=== PATIENT | male | born 1965 | race Caucasian/White ===

== ENCOUNTER 2016-05-01 14:06 | Emergency (ER) | payer SELFPAY ==
[~2016-05-01] VITALS: Ht 185.4 cm; Wt 84.0 kg
[2016-05-01 14:08] VITALS: BP 150/78; PULSE 82; RESP 20; TEMP 97.4; O2SAT 98
[2016-05-01] MEDS ORDERED: IBUP800T23 PO (15:20)
[2016-05-01] MEDS ORDERED: AUGM875T PO (15:20)
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
[2016-05-01] MEDS ORDERED: LIDOCAINE 1%/EPINEPHrine 1:100,000 SOLN 20 ML VIAL INFIL ONE (15:30)
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
== END 2016-05-01 16:06 | disposition home or self-care (01) ==
LOC: NEPB 14:06
DX: S01.511A Laceration without foreign body of lip, initial encounter (principal); W50.0XXA Accidental hit or strike by another person, initial encounter; Y93.9 Activity, unspecified; Y92.9 Unspecified place or not applicable; Y99.9 Unspecified external cause status
CPT/HCPCS: 12051

== ENCOUNTER 2016-06-02 14:35 | Emergency (ER) | payer SELFPAY ==
[~2016-06-02] VITALS: Ht 185.4 cm; Wt 84.0 kg
[~2016-06-02 14:35] MED LIST: AUGM875T PO; IBUP800T23 PO
[2016-06-02 14:37] VITALS: BP 160/70; PULSE 68; RESP 20; TEMP 98.1; O2SAT 98
[2016-06-02] MEDS ORDERED: HYDR-3133 PO (17:27)
--- NOTE | 2016-06-02 17:28 | PD ---
HPI Chief Complaint: Dizziness Time Seen by Provider: 16:51 Travel History International Travel<30 days: No Contact w/Intl Traveler<30days: No Traveled to known affect area: No History of Present Illness HPI So 50-year-old man who presents to the emergency department complaining is been having headaches and dizziness and memory problems. He states "I've had 6 stroke site of seizures and "also states that he needs a disability form filled out for [employer]. States his eyes he walks around he can't number babcock doing what he is doing. He drinks alcohol but denies daily alcohol use. Does endorse that he gets tired easily. History Past Medical History Narrative Medical CVA Seizures Tobacco use Tetanus Vaccination: Unknown Influenza Vaccination: Yes Social History Alcohol Use: Yes Tobacco Use: Yes Allergies-Medications (Allergen,Severity, Reaction): Coded Allergies: No Known Allergies (Unverified , 06/02/16) Reported Meds & Prescriptions Reported Meds & Active Scripts Active Augmentin (Amoxicillin-Clavulanate) 875-125 mg Tab 875 Mg PO BID 7 Days not for use in CrCl <30 ml/min. Ibuprofen 800 Mg Tab 800 Mg PO Q6HR PRN Review of Systems Except as stated in HPI: all other systems reviewed are Neg Physical Exam Narrative GENERAL: 50-year-old man, joint well-appearing, slurred speech, little bit tremulous. SKIN: Focused skin assessment warm/dry. NECK: Trachea midline. No JVD. CARDIOVASCULAR: Regular rate and rhythm. No murmur appreciated. RESPIRATORY: No accessory muscle use. Clear to auscultation. Breath sounds equal bilaterally. GASTROINTESTINAL: Abdomen soft, non-tender, nondistended. Hepatic and splenic margins not palpable. MUSCULOSKELETAL: No obvious deformities. No clubbing. No cyanosis. No edema. NEUROLOGICAL: Awake and alert. No obvious cranial nerve deficits. No facial asymmetry. Motor grossly within normal limits. Strength full and equal upper and lower extremities. Some occasional tremor. Slurred speech. Data Data Last Documented VS Vital Signs Date Time Temp Pulse Resp B/P Pulse Ox O2 Delivery O2 Flow Rate FiO2 06/02/16 17:14 18 99 06/02/16 14:37 98.1 68 160/70 Room Air MDM Medical Decision Making Medical Screen Exam Complete: Yes Emergency Medical Condition: Yes Differential Diagnosis Weakness, intoxication, previous CVAs, cerebellar degeneration, vitamin deficiency, other Narrative Course Medical decision making Is a 50-year-old man presents emergent from pretty generalized complaints. States he has strokes and seizures in the past and feels weak and confused at times. He drinks alcohol most days. Denies daily alcohol use. He states he carries a cane because of not. We'll send that he's drunk because of how much she staggers. Nisha vitamin deficiency or cerebellar degeneration. He endorses multiple previous strokes could be causing her symptoms. It may actually be intoxicated. He seems to mostly be here because she called [facility] and they said he needs a physician performed. I told him we don't do that in the emergency department. He likes of dizziness. We can give him some Antivert. Diagnosis Primary Impression: Dizziness Additional Instructions: Follow-up with her primary physician for further evaluation of your dizziness and disability. Use Antivert as needed for dizziness. Return to the emergency department for any new or worsening symptoms. Med/Other Pt SpecificInfo: Prescription(s) given Scripts Hydroxyzine HCl 25 Mg Tab25 Mg PO TID PRN (DIZZINESS) #12 TAB Ref 0 Prov:Goran Vigil MD 06/02/16 Disposition: 01 DISCHARGE HOME Condition: Stable Goran Vigil MD Jun 02, 2016 17:27
[2016-06-02] MEDS ORDERED: hydrOXYzine HCL 25 MG TAB PO ONE (17:30)
== END 2016-06-02 17:49 | disposition home or self-care (01) ==
LOC: NEPC 14:35
DX: R42 Dizziness and giddiness (principal); Z72.0 Tobacco use
CPT/HCPCS: 99283

== ENCOUNTER 2016-06-09 12:12 | Emergency (ER) | payer SELFPAY ==
[~2016-06-09] VITALS: Ht 185.4 cm; Wt 84.0 kg
[~2016-06-09 12:12] MED LIST changes: +HYDR-3133 PO
[2016-06-09 12:14] VITALS: BP 178/74; PULSE 75; RESP 17; TEMP 98.1; O2SAT 98
--- NOTE | 2016-06-09 12:28 | PD ---
Physical Exam Time Seen by Provider: 12:26 Narrative 50yo M c/o dizziness secondary to hx of stroke since 2014. Wound on bottom of R foot from this morning from stepping on a panel on the back porch. Denies fever, vomiting. Patient stable. Patient seen in triage. Awaiting bed placement. Data Data Last Documented VS Vital Signs Date Time Temp Pulse Resp B/P Pulse Ox O2 Delivery O2 Flow Rate FiO2 06/09/16 12:14 98.1 75 17 178/74 98 Orders Electrocardiogram (06/09/16 ) [facility] Supervised Visit with LAUREN: Mary Castellanos Jun 09, 2016 12:28
--- NOTE | 2016-06-09 15:02 | PD ---
HPI Chief Complaint: Dizziness Time Seen by Provider: 14:03 Travel History International Travel<30 days: No Contact w/Intl Traveler<30days: No Traveled to known affect area: No History of Present Illness HPI Is a 50-year-old man who presents to the emergency department with a cut on the bottom of his right foot. He states he slipped and fell and cut it on metal. Patient has a history of multiple strokes and has a lot of unsteadiness and dizziness. I see him in the emergency department before for the similar symptoms. This happened this morning. He otherwise has been feeling well. History Past Medical History Narrative Medical CVA Seizures Tobacco use Tetanus Vaccination: < 5 Years Social History Alcohol Use: Yes (last a week ago. ) Tobacco Use: Yes Allergies-Medications (Allergen,Severity, Reaction): Coded Allergies: No Known Allergies (Unverified , 06/02/16) Reported Meds & Prescriptions Reported Meds & Active Scripts Active Review of Systems Except as stated in HPI: all other systems reviewed are Neg Physical Exam Narrative GENERAL: 50-year-old man, wobbly and unsteady, per his intoxicated, similar to when I saw him previously. SKIN: Warm and dry. CARDIOVASCULAR: Warm and well perfused. RESPIRATORY: Normal rate and effort. MUSCULOSKELETAL: Patient has a skin tear on the bottom of his foot was some avulsion of a small piece of soft tissue on the ball of the foot. It scraped off some of the thick epidermis, but is overall still very superficial. NEUROLOGICAL: Awake and alert. No gross deficits. Data Data Last Documented VS Vital Signs Date Time Temp Pulse Resp B/P Pulse Ox O2 Delivery O2 Flow Rate FiO2 06/09/16 13:00 Room Air 06/09/16 12:14 98.1 75 17 178/74 98 Orders Electrocardiogram (06/09/16 ) Foot, Limited (2vws) (06/09/16 ) MDM Medical Decision Making Medical Screen Exam Complete: Yes Emergency Medical Condition: Yes Interpretation(s) My review of right foot x-ray: No foreign body Differential Diagnosis Avulsion, retained foreign body, other Narrative Course Medical decision making 50-year-old man, unsteadiness from previous strokes. At baseline. Has a fall with a cut above his foot. We will clean up the cut. There is no real opportunity for primary repair. Recommend local wound care. Diagnosis Primary Impression: Avulsion of right foot excluding toes Additional Instructions: Keep foot clean and dry. Apply anabiotic ointment to wound twice daily. Follow-up with her primary doctor in the next one to 2 weeks or not completely well. Return to the emergency department for any new or worsening symptoms. Med/Other Pt SpecificInfo: No Change to Meds Disposition: 01 DISCHARGE HOME Condition: Stable Goran Vigil MD Jun 09, 2016 15:02
--- NOTE | 2016-06-09 15:12 | RADRPT ---
EXAM DATE/TIME: 06/09/2016 14:43 [facility] COMPARISON: No previous studies available for comparison. INDICATIONS : Right foot pain after cutting bottom of foot today. Evaluate for foreign body. MEDICAL HISTORY : Smoker. SURGICAL HISTORY : None. ENCOUNTER: Initial ACUITY: 1 day PAIN SCORE: 9/10 LOCATION: Right bottom of foot. FINDINGS: Two view examination of the right foot demonstrates no dislocation or fracture. There is mild soft t issue swelling of the plantar aspect of the foot with no radiopaque foreign body. The calcaneus is in tact. Bony mineralization is normal. CONCLUSION: Mild soft tissue swelling with no radiopaque foreign body. Jan Warren MD on June 09, 2016 at 15:10 Board Certified Radiologist. This report was verified electronically.
== END 2016-06-09 15:55 | disposition home or self-care (01) ==
LOC: NEPD 12:12
DX: S91.301A Unspecified open wound, right foot, initial encounter (principal); R42 Dizziness and giddiness; R26.81 Unsteadiness on feet; R56.9 Unspecified convulsions; W01.0XXA Fall on same level from slipping, tripping and stumbling without subsequent striking against object, initial encounter; W26.8XXA Contact with other sharp object(s), not elsewhere classified, initial encounter; Y92.009 Unspecified place in unspecified non-institutional (private) residence as the place of occurrence of the external cause; Z72.0 Tobacco use
CPT/HCPCS: 73620; 99283

== ENCOUNTER 2016-08-12 08:44 | Emergency (ER) | payer SELFPAY ==
[~2016-08-12] VITALS: Ht 177.8 cm; Wt 90.0 kg
[2016-08-12 08:50] VITALS: BP 136/76; PULSE 64; RESP 18; TEMP 97.8; O2SAT 96
[2016-08-12] MEDS ORDERED: SODIUM CHLOR 0.9% 1000 ML INJ 1,000 ML IV ONE (09:00)
[2016-08-12] MEDS ORDERED: SODIUM CHLORIDE 0.9% FLUSH 10 ML FLUSH IVF PRN (09:00)
--- NOTE | 2016-08-12 09:21 | RADRPT ---
EXAM DATE/TIME: 08/12/2016 09:10 [facility] COMPARISON: No previous studies available for comparison. INDICATIONS : Cephalgia. RADIATION DOSE: 38.74 CTDIvol (mGy) MEDICAL HISTORY : None SURGICAL HISTORY : None. ENCOUNTER: Initial ACUITY: 1 day PAIN SCALE: 5/10 LOCATION: Bilateral cranial TECHNIQUE: Multiple contiguous axial images were obtained of the head. Using automated exposure control and adj ustment of the mA and/or kV according to patient size, radiation dose was kept as low as reasonably a chievable to obtain optimal diagnostic quality images. DICOM format image data is available electro nically for review and comparison. FINDINGS: There is an area of diminished cortical and subcortical density in the medial left occipital region p osterior to the occipital horn of lateral ventricle extending to the posterior medial cortical surfac e. Similar areas of diminished density are present in the cerebellar hemispheres bilaterally. These a re presumably strokes of undetermined age. An old lacunar infarct is present in the right caudate hea d. There is no evidence of intracranial hemorrhage or mass. Ventricles are symmetric and normal. Extr acranial structures are benign and intact. CONCLUSION: Areas of diminished density consistent with strokes of incompletely determined chronicity. Recommend further evaluation with MRI. Robert Brothers MD on August 12, 2016 at 9:16 Board Certified Radiologist. This report was verified electronically.
[2016-08-12 09:40] LABS: AUTOMATED NEUTROPHIL # 2.7 TH/MM3 (1.8-7.7); BASOPHIL # 0.1 TH/MM3 (0-0.2); BASOPHIL % 1.3 % (0.0-2.0); EOSINOPHIL # 0.2 TH/MM3 (0-0.4); EOSINOPHIL % 4.8 % (0.0-4.0); HEMATOCRIT 38.7 % (39.0-51.0); HEMO FLAGS DIFF FINAL; LYMPHOCYTE # 1.2 TH/MM3 (1.0-4.8); MEAN CELL VOLUME 87.3 FL (80.0-100.0); MEAN CORPUSCULAR HEMOGLOBIN 30.6 PG (27.0-34.0); MEAN CORPUSCULAR HGB CONC 35.1 % (32.0-36.0); MONO % 11.3 % (0.0-8.0); NEUT % 57.6 % (16.0-70.0); PLATELET COUNT 196 TH/MM3 (150-450); RED BLOOD COUNT 4.43 MIL/MM3 (4.50-5.90); RED CELL DISTRIBUTION WIDTH 13.2 % (11.6-17.2); WHITE BLOOD COUNT 4.6 TH/MM3 (4.0-11.0)
[2016-08-12 09:58] LABS: ANION GAP 6 MEQ/L (5-15); BICARBONATE 27.9 MEQ/L (21.0-32.0); BLOOD UREA NITROGEN 15 MG/DL (7-18); CHLORIDE 109 MEQ/L (98-107); GLOMERULAR FILTRATION RATE 93 ML/MIN (>89); POTASSIUM 3.8 MEQ/L (3.5-5.1); SODIUM (NA) 143 MEQ/L (136-145)
--- NOTE | 2016-08-12 10:19 | PD ---
HPI Chief Complaint: Headache Time Seen by Provider: 08:53 Travel History International Travel<30 days: No Contact w/Intl Traveler<30days: No Traveled to known affect area: No History of Present Illness HPI 50-year-old male presents with diffuse headache that he's had intermittently over the past couple years since his stroke. He denies any trauma or other concurrent complaints. He denies taking anything for the headache. He states he had alcohol last night but none today. He states he cannot afford his medications and is not taking them but does not know what he should be taking. He feels worse when he was round. He denies other modifying factors. Patient is a poor historian. [facility] Past Medical History Narrative Medical By records Cerebrovascular Accident: Yes (x5) Diabetes: No Diminished Hearing: No Past Surgical History Narrative Surgical Patient denies but poor historian Social History Alcohol Use: Yes (ONE BEER LAST NIGHT) Tobacco Use: Yes (1 PPD) Substance Use: No Allergies-Medications (Allergen,Severity, Reaction): Coded Allergies: No Known Allergies (Unverified , 06/02/16) Reported Meds & Prescriptions Reported Meds & Active Scripts Active Review of Systems Except as stated in HPI: all other systems reviewed are Neg Physical Exam Exam Limitations: Poor Historian Narrative GENERAL: Well-nourished, well-developed patient. SKIN: Warm and dry. HEAD: Normocephalic and atraumatic. EYES: No injection or drainage. ENT: No nasal drainage noted. NECK: Supple, trachea midline. CARDIOVASCULAR: Regular rate and rhythm RESPIRATORY: No increased effort. No accessory muscle use. GASTROINTESTINAL: Abdomen soft, non-tender, nondistended. NEUROLOGICAL: Awake and alert. Moves all extremities equally. Normal speech. Steady gait Data Data Last Documented VS Vital Signs Date Time Temp Pulse Resp B/P Pulse Ox O2 Delivery O2 Flow Rate FiO2 08/12/16 08:50 97.8 64 18 136/[address] Brain W/O Iv Contrast(Rout) (08/12/16 ) Complete Blood Count With Diff (08/12/16 09:00) Basic Metabolic Panel (Bmp) (08/12/16 09:00) Ecg Monitoring (08/12/16 09:00) Iv Access Insert/Monitor (08/12/16 09:00) Oximetry (08/12/16 09:00) Sodium Chloride 0.9% Flush (Ns Flush) (08/12/16 09:00) Sodium Chlor 0.9% 1000 Ml Inj (Ns 1000 M (08/12/16 09:00) Alcohol (Ethanol) (08/12/16 09:00) Labs Laboratory Tests Test 08/12/16 09:20 White Blood Count 4.6 TH/MM3 Red Blood Count 4.43 MIL/MM3 Hemoglobin 13.6 GM/DL Hematocrit 38.7 % Mean Corpuscular Volume 87.3 FL Mean Corpuscular Hemoglobin 30.6 PG Mean Corpuscular Hemoglobin 35.1 % Concent Red Cell Distribution Width 13.2 % Platelet Count 196 TH/MM3 Mean Platelet Volume 8.1 FL Neutrophils (%) (Auto) 57.6 % Lymphocytes (%) (Auto) 25.0 % Monocytes (%) (Auto) 11.3 % Eosinophils (%) (Auto) 4.8 % Basophils (%) (Auto) 1.3 % Neutrophils # (Auto) 2.7 TH/MM3 Lymphocytes # (Auto) 1.2 TH/MM3 Monocytes # (Auto) 0.5 TH/MM3 Eosinophils # (Auto) 0.2 TH/MM3 Basophils # (Auto) 0.1 TH/MM3 CBC Comment DIFF FINAL Differential Comment Sodium Level 143 MEQ/L Potassium Level 3.8 MEQ/L Chloride Level 109 MEQ/L Carbon Dioxide Level 27.9 MEQ/L Anion Gap 6 MEQ/L Blood Urea Nitrogen 15 MG/DL Creatinine 0.86 MG/DL Estimat Glomerular Filtration 93 ML/MIN Rate Random Glucose 85 MG/DL Calcium Level 8.5 MG/DL Ethyl Alcohol Level LESS THAN 3 MG/DL MDM Medical Decision Making Medical Screen Exam Complete: Yes Emergency Medical Condition: Yes Medical Record Reviewed: Yes (past history confirmed) Interpretation(s) CBC & BMP Diagram 08/12/16 09:20 Last [address] 08/12/16 0000 Signed Impressions: Service Date/Time: Friday, August 12, 2016 09:10 - CONCLUSION: Areas of diminished density consistent with strokes of incompletely determined chronicity. Recommend further evaluation with MRI. Robert Brothers MD Differential Diagnosis Tension, migraine, cluster, bleed Narrative Course Will check blood work, CT and reevaluate CT shows stroke of unknown duration. Went back in to talk with patient about results and he had eloped against advice at 10:15 Diagnosis Primary Impression: Cephalgia Qualified Code: R51 - Acute nonintractable headache, unspecified headache type Patient Instructions: General Instructions Disposition: 07 AGAINST MEDICAL ADVICE Condition: Stable Yamileth Valentino MD Aug 12, 2016 10:19
== END 2016-08-12 10:19 | disposition left against medical advice (07) ==
LOC: NEPC 08:44
DX: R51 Headache (principal); Z86.73 Personal history of transient ischemic attack (TIA), and cerebral infarction without residual deficits; F17.210 Nicotine dependence, cigarettes, uncomplicated
CPT/HCPCS: 70450; 80048; 80307; 85025; J7030

== ENCOUNTER 2016-08-23 05:44 | Observation (INO) | payer SELFPAY ==
[~2016-08-23] VITALS: Ht 185.4 cm; Wt 86.0 kg
[2016-08-23 05:48] VITALS: BP 147/72; PULSE 74; RESP 15; TEMP 98.1; O2SAT 98
[2016-08-23] MEDS ORDERED: SODIUM CHLORIDE 0.9% FLUSH 10 ML FLUSH IVF PRN (06:15)
[2016-08-23 06:40] VITALS: BP_SYST 138; BP_SYST 141; BP_DIAS 70; BP_DIAS 73; RESP 16; O2SAT 100
--- NOTE | 2016-08-23 06:48 | RADRPT ---
EXAM DATE/TIME: 08/23/2016 06:10 [facility] COMPARISON: No previous studies available for comparison. INDICATIONS : Right upper quadrant abdominal pain. MEDICAL HISTORY : None. SURGICAL HISTORY : None. ENCOUNTER: Initial ACUITY: 1 day PAIN SCORE: 10/10 LOCATION: Right upper quadrant FINDINGS: A single view of the chest demonstrates the lungs to be symmetrically aerated without evidence of mas s, infiltrate or effusion. The cardiomediastinal contours are unremarkable. Multiple old healed left fracture deformities. Mild dextroscoliosis of the thoracolumbar spine. CONCLUSION: No acute cardiopulmonary process. Marquis Solomon MD on August 23, 2016 at 6:46 Board Certified Radiologist. This report was verified electronically.
[2016-08-23 06:52] LABS: AUTOMATED NEUTROPHIL # 3.2 TH/MM3 (1.8-7.7); BASOPHIL # 0.1 TH/MM3 (0-0.2); BASOPHIL % 1.3 % (0.0-2.0); EOSINOPHIL # 0.2 TH/MM3 (0-0.4); EOSINOPHIL % 3.7 % (0.0-4.0); HEMATOCRIT 41.1 % (39.0-51.0); HEMO FLAGS DIFF FINAL; LYMPH % 28.6 % (9.0-44.0); LYMPHOCYTE # 1.6 TH/MM3 (1.0-4.8); MEAN CELL VOLUME 88.8 FL (80.0-100.0); MEAN CORPUSCULAR HEMOGLOBIN 30.9 PG (27.0-34.0); MEAN CORPUSCULAR HGB CONC 34.8 % (32.0-36.0); NEUT % 57.4 % (16.0-70.0); PLATELET COUNT 245 TH/MM3 (150-450); RED BLOOD COUNT 4.62 MIL/MM3 (4.50-5.90); RED CELL DISTRIBUTION WIDTH 13.7 % (11.6-17.2); WHITE BLOOD COUNT 5.6 TH/MM3 (4.0-11.0)
[2016-08-23 07:07] LABS: ANION GAP 7 MEQ/L (5-15); BICARBONATE 26.7 MEQ/L (21.0-32.0); BLOOD UREA NITROGEN 14 MG/DL (7-18); CHLORIDE 105 MEQ/L (98-107); GLOMERULAR FILTRATION RATE 103 ML/MIN (>89); POTASSIUM 3.6 MEQ/L (3.5-5.1); SODIUM (NA) 139 MEQ/L (136-145)
--- NOTE | 2016-08-23 07:09 | PD ---
HPI Chief Complaint: Chest Pain Time Seen by Provider: 06:11 Travel History International Travel<30 days: No Contact w/Intl Traveler<30days: No Traveled to known affect area: No History of Present Illness HPI Patient is a 51-year-old male comes in complaining of chest pain. He says the pain is on the right side of his chest and he is had for the past 3 or 4 days. He was found outside of [facility] in his underwear and when police told him to move , he said he had chest pain. He denies shortness of breath or nausea or vomiting. He says that exertion makes the pain worse. He has not had any cough or fever. PFSH Past Medical History Cerebrovascular Accident: Yes (x5) Diabetes: No Diminished Hearing: No Seizures: Yes Social History Alcohol Use: Yes (OCC) Tobacco Use: Yes (1 PPD) Substance Use: No Allergies-Medications (Allergen,Severity, Reaction): Coded Allergies: No Known Allergies (Unverified , 08/23/16) Reported Meds & Prescriptions Reported Meds & Active Scripts Active No Active Prescriptions or Reported Medications Review of Systems Except as stated in HPI: all other systems reviewed are Neg General / Constitutional: No: Fever, Chills HENT: No: Headaches, Lightheadedness Cardiovascular: Positive: Chest Pain or Discomfort Respiratory: No: Shortness of Breath Gastrointestinal: No: Nausea, Vomiting Musculoskeletal: No: Myalgias Skin: No Rash, No Change in Pigmentation Neurologic: No: Weakness, Dizziness Physical Exam Narrative GENERAL: Awake and alert, in no acute distress. SKIN: Focused skin assessment warm/dry. HEAD: Atraumatic. Normocephalic. EYES: Pupils equal and round. No scleral icterus. ENT: Mucous membranes pink and moist. NECK: Trachea midline. No JVD. CARDIOVASCULAR: Regular rate and rhythm. No murmur appreciated. RESPIRATORY: No accessory muscle use. Clear to auscultation. Breath sounds equal bilaterally. GASTROINTESTINAL: Abdomen soft, non-tender, nondistended. MUSCULOSKELETAL: No obvious deformities. No clubbing. No cyanosis. No edema. NEUROLOGICAL: Awake and alert. No obvious cranial nerve deficits. Motor grossly within normal limits. Normal speech. PSYCHIATRIC: Appropriate mood and affect; insight and judgment normal. Data Data Last Documented VS Vital Signs Date Time Temp Pulse Resp B/P Pulse Ox O2 Delivery O2 Flow Rate FiO2 08/23/16 07:40 70 17 155/72 98 Room Air Orders Basic Metabolic Panel (Bmp) (08/23/16 06:13) Complete Blood Count With Diff (08/23/16 06:13) Prothrombin Time / Inr (Pt) (08/23/16 06:13) Act Partial Throm Time (Ptt) (08/23/16 06:13) Troponin I (08/23/16 06:13) Chest, Single Ap (08/23/16 06:13) Ecg Monitoring (08/23/16 06:13) Bilateral Bp Monitoring (08/23/16 06:13) Iv Access Insert/Monitor (08/23/16 06:13) Oximetry (08/23/16 06:13) Sodium Chloride 0.9% Flush (Ns Flush) (08/23/16 06:15) Alcohol (Ethanol) (08/23/16 06:13) Aspirin Chew (Aspirin Chew) (08/23/16 09:00) Admit Order (Ed Use Only) (08/23/16 ) Labs Laboratory Tests Test 08/23/16 06:30 White Blood Count 5.6 TH/MM3 Red Blood Count 4.62 MIL/MM3 Hemoglobin 14.3 GM/DL Hematocrit 41.1 % Mean Corpuscular Volume 88.8 FL Mean Corpuscular Hemoglobin 30.9 PG Mean Corpuscular Hemoglobin 34.8 % Concent Red Cell Distribution Width 13.7 % Platelet Count 245 TH/MM3 Mean Platelet Volume 7.9 FL Neutrophils (%) (Auto) 57.4 % Lymphocytes (%) (Auto) 28.6 % Monocytes (%) (Auto) 9.0 % Eosinophils (%) (Auto) 3.7 % Basophils (%) (Auto) 1.3 % Neutrophils # (Auto) 3.2 TH/MM3 Lymphocytes # (Auto) 1.6 TH/MM3 Monocytes # (Auto) 0.5 TH/MM3 Eosinophils # (Auto) 0.2 TH/MM3 Basophils # (Auto) 0.1 TH/MM3 CBC Comment DIFF FINAL Differential Comment Prothrombin Time 10.9 SEC Prothromb Time International 1.0 RATIO Ratio Activated Partial 27.7 SEC Thromboplast Time Sodium Level 139 MEQ/L Potassium Level 3.6 MEQ/L Chloride Level 105 MEQ/L Carbon Dioxide Level 26.7 MEQ/L Anion Gap 7 MEQ/L Blood Urea Nitrogen 14 MG/DL Creatinine 0.79 MG/DL Estimat Glomerular Filtration 103 ML/MIN Rate Random Glucose 89 MG/DL Calcium Level 9.0 MG/DL Troponin I LESS THAN 0.02 NG/ML Ethyl Alcohol Level LESS THAN 3 MG/DL MDM Medical Decision Making Medical Screen Exam Complete: Yes Emergency Medical Condition: Yes Medical Record Reviewed: Yes Interpretation(s) ECG shows sinus bradycardia at 54, no ST elevation or depression. Differential Diagnosis ACS versus NSTEMI versus STEMI versus intoxication versus malingering Narrative Course Patient is a 51-year-old male who comes in complaining of chest pain. Exam shows no acute abnormalities. IV established, labs sent. Patient connected to supervisor multifocal lens. Patient given aspirin. Chest x-ray performed shows no acute abnormalities. Labs show no acute abnormalities. Patient placed in chest pain center for further management. Diagnosis Primary Impression: Chest pain, atypical Admitting Information Admitting Physician Requests: Observation Scripts No Active Prescriptions or Reported Meds Condition: Stable Nubia Adkins MD Aug 23, 2016 07:09
[2016-08-23 07:12] LABS: APTT (PATIENT) 27.7 SEC (24.3-30.1); PROTHROMBIN TIME - PATIENT 10.9 SEC (9.8-11.6)
[2016-08-23 07:40] VITALS: BP 155/72; PULSE 70; RESP 17; O2SAT 98
[2016-08-23] MEDS ORDERED: ASPIRIN 81 MG CHEW TAB CHEW SCH (09:00)
[2016-08-23] MEDS ORDERED: ACETAMINOPHEN/HYDROcodone 325 MG/7.5 MG TAB PO PRN (09:15)
[2016-08-23] MEDS ORDERED: ACETAMINOPHEN 500 MG CPLT PO PRN (09:15)
[2016-08-23] MEDS ORDERED: ONDANSETRON HCL 4 MG/2 ML VIAL IV PRN (09:15)
[2016-08-23] MEDS ORDERED: SODIUM CHLORIDE 0.9% FLUSH 5 ML FLUSH IVF PRN (09:15)
[2016-08-23 09:34] VITALS: BP 145/65; PULSE 67; RESP 16; TEMP 96; O2SAT 98
--- NOTE | 2016-08-23 09:35 | EKG ---
Date Performed: 08/23/2016 Time Performed: 06:08:21 PTAGE: 51 years EKG: SINUS BRADYCARDIA NONSPECIFIC T-WAVE ABNORMALITY BORDERLINE ECG NO PREVIOUS TRACING DOCTOR: Jim Pride Interpretating Date/Time 08/23/2016 09:34:23
--- NOTE | 2016-08-23 09:55 | HHI.HP ---
HPI Primary Care Physician No Primary Care Physician Chief Complaint Chest pain History of Present Illness This is a 51-year-old male that presents to ED via E VAC with a complaint of a right-sided chest discomfort is present for about a month. Is worsened with certain movements and with coughing. He states he has had a cough as far as he can remember and interpreted to a smoker's cough. It is nonproductive. No fevers. Denies history of CAD. He has history of hypertension but states he has not taken medicine for that and years. He also states he has history of CVA 6 and states it always effective speech. He takes no medication for that. Patient continues to smoke cigarettes. Review of Systems General: Patient denies fevers, chills recent, and recent travel HEENT: Patient denies headache, sore throat, difficulty swallowing. Cardiovascular: Has the chest discomfort as mentioned above. Denies sensation of heart beating rapidly or irregularly. No syncope. Respiratory: Denies shortness of breath or inspirational chest discomfort. Patient states he has had a cough for as long as he can remember however it is been nonproductive. Wheezing or hemoptysis. GI: Patient denies nausea, vomiting, diarrhea, abdominal pain, bloody stools. Musculoskeletal: Patient denies joint pain or edema. Denies calf pain or edema. Neurovascular: Patient denies numbness, tingling, weakness in extremities. Denies headache. Endocrine: Denies polyuria and polydipsia. Hematologic: Denies easy bruising. Skin: Denies rash or itching. Past Family Social History Allergies: Coded Allergies: No Known Allergies (Unverified , 08/23/16) Past Medical History States history of 6 CVAs. Takes no medication. History of hypertension but states he is not a medication for years. Denies hyperlipidemia, diabetes, and known CAD. Past Surgical History Noncontributory. Reported Medications Reported Meds & Active Scripts Active No Active Prescriptions or Reported Medications Active Ordered Medications Current Medications Medications (Trade) Dose Ordered Sig/Kay Route Start Time Stop Time Status Last Admin (NS Flush) 2 ml UNSCH PRN IVF 08/23/16 06:15 (Aspirin Chew) 162 mg DAILY CHEW 08/23/16 09:00 08/23/16 09:03 Family History He states that he doesn't know about his family history. Social History Patient smokes one pack of cigarettes daily and has done so for about 35 years. States has occasional alcohol and cannot recall last time he had an alcohol beverage. Denies illicit drugs. Physical Exam Vital Signs Vital Signs Date Time Temp Pulse Resp B/P Pulse Ox O2 Delivery O2 Flow Rate FiO2 08/23/16 07:40 70 17 155/72 98 Room Air 08/23/16 06:40 16 100 Room Air 08/23/16 06:40 141/70 138/73 Automatic Cuff 08/23/16 06:07 61 16 96 Room Air 08/23/16 05:48 98.1 74 15 147/72 98 Room Air Physical Exam GENERAL: This is a well-nourished, well-developed patient, in no apparent distress. Patient speaks in clear complete sentences. Patient is pleasant. HEENT: Head is atraumatic and normocephalic. Neck is supple without lymphadenopathy and trachea is midline. No JVD or carotid bruits. CARDIOVASCULAR: Regular rate and rhythm without murmurs, gallops, or rubs. RESPIRATORY: Clear to auscultation. Breath sounds equal bilaterally. No wheezes , rales, or rhonchi. Right sided of his chest wall is very tender to palpate. This also is reproduced with twisting of the torso. States this is the same discomfort that he has been having. No use of accessory muscles. GASTROINTESTINAL: Abdomen is nontender, nondistended. Abdomen soft. No obvious pulsatile mass or bruit. No CVA tenderness. Strong femoral pulses bilaterally. Normal bowel sounds in all quadrants. MUSCULOSKELETAL: Patient is moving upper and lower extremities freely. No calf tenderness or edema, no Homans sign. Strong pulses in upper and lower extremities. NEUROLOGICAL: Patient is alert and oriented. Cranial nerves 2-12 are grossly intact. No focal deficits and speech is clear. SKIN: No rash and turgor is normal. Laboratory Laboratory Tests Test 08/23/16 06:30 White Blood Count 5.6 Red Blood Count 4.62 Hemoglobin 14.3 Hematocrit 41.1 Mean Corpuscular Volume 88.8 Mean Corpuscular Hemoglobin 30.9 Mean Corpuscular Hemoglobin 34.8 Concent Red Cell Distribution Width 13.7 Platelet Count 245 Mean Platelet Volume 7.9 Neutrophils (%) (Auto) 57.4 Lymphocytes (%) (Auto) 28.6 Monocytes (%) (Auto) 9.0 Eosinophils (%) (Auto) 3.7 Basophils (%) (Auto) 1.3 Neutrophils # (Auto) 3.2 Lymphocytes # (Auto) 1.6 Monocytes # (Auto) 0.5 Eosinophils # (Auto) 0.2 Basophils # (Auto) 0.1 CBC Comment DIFF FINAL Differential Comment Prothrombin Time 10.9 Prothromb Time International 1.0 Ratio Activated Partial 27.7 Thromboplast Time Sodium Level 139 Potassium Level 3.6 Chloride Level 105 Carbon Dioxide Level 26.7 Anion Gap 7 Blood Urea Nitrogen 14 Creatinine 0.79 Estimat Glomerular Filtration 103 Rate Random Glucose 89 Calcium Level 9.0 Troponin I LESS THAN 0.02 Ethyl Alcohol Level LESS THAN 3 Result Diagram: 08/23/1662908/23/16629 Imaging Last 24 hours Impressions Chest X-Ray 08/23/16612 Signed Impressions: Service Date/Time: Tuesday, August 23, 2016 06:10 - CONCLUSION: No acute cardiopulmonary process. Marquis Solomon MD Course Initial EKG has sinus bradycardia with nonspecific anterolateral T-wave changes. Assessment and Plan Assessment and Plan * Atypical chest pain: Patient will continue to have serial cardiac enzymes and EKGs for ruling out purposes. * Tobacco abuse: Patient has been counseled on importance of smoking cessation. Thaddeus Jones Aug 23, 2016 09:54
[2016-08-23 10:13] LABS: CREATINE KINASE 351 U/L (39-308)
[2016-08-23 10:25] LABS: CKMB 6.4 NG/ML (0.5-3.6)
--- NOTE | 2016-08-23 10:36 | HHI.HP ---
HPI Primary Care Physician No Primary Care Physician History of Present Illness This is a 51-year-old male that presents to ED via E VAC with a complaint of a right-sided chest discomfort is present for about a month. Is worsened with certain movements and with coughing. He states he has had a cough as far as he can remember and interpreted to a smoker's cough. It is nonproductive. No fevers. Denies history of CAD. He has history of hypertension but states he has not taken medicine for that and years. He also states he has history of CVA 6 and states it always effective speech. He takes no medication for that. Patient continues to smoke cigarettes. Past Family Social History Allergies: Coded Allergies: No Known Allergies (Unverified , 08/23/16) Reported Medications Reported Meds & Active Scripts Active No Active Prescriptions or Reported Medications Active Ordered Medications Current Medications Medications (Trade) Dose Ordered Sig/Kay Route Start Time Stop Time Status Last Admin (NS Flush) 2 ml UNSCH PRN IVF 08/23/16 09:15 (NS Flush) 2 ml BID IVF 08/23/16 21:00 (Tylenol) 500 mg Q4H PRN PO 08/23/16 09:15 (Sapello 7.5-325 Mg) 1 tab Q4H PRN PO 08/23/16 09:15 (Zofran Inj) 4 mg Q6H PRN IV 08/23/16 09:15 (Aspirin) 325 mg DAILY PO 08/24/16 09:00 Physical Exam Vital Signs Vital Signs Date Time Temp Pulse Resp B/P Pulse Ox O2 Delivery O2 Flow Rate FiO2 08/23/16 09:34 96.0 67 16 145/65 98 08/23/16 07:40 70 17 155/72 98 Room Air 08/23/16 06:40 16 100 Room Air 08/23/16 06:40 141/70 138/73 Automatic Cuff 08/23/16 06:07 61 16 96 Room Air 08/23/16 05:48 98.1 74 15 147/72 98 Room Air Laboratory Laboratory Tests Test 08/23/16 08/23/16 06:30 09:30 White Blood Count 5.6 Red Blood Count 4.62 Hemoglobin 14.3 Hematocrit 41.1 Mean Corpuscular Volume 88.8 Mean Corpuscular Hemoglobin 30.9 Mean Corpuscular Hemoglobin 34.8 Concent Red Cell Distribution Width 13.7 Platelet Count 245 Mean Platelet Volume 7.9 Neutrophils (%) (Auto) 57.4 Lymphocytes (%) (Auto) 28.6 Monocytes (%) (Auto) 9.0 Eosinophils (%) (Auto) 3.7 Basophils (%) (Auto) 1.3 Neutrophils # (Auto) 3.2 Lymphocytes # (Auto) 1.6 Monocytes # (Auto) 0.5 Eosinophils # (Auto) 0.2 Basophils # (Auto) 0.1 CBC Comment DIFF FINAL Differential Comment Prothrombin Time 10.9 Prothromb Time International 1.0 Ratio Activated Partial 27.7 Thromboplast Time Sodium Level 139 Potassium Level 3.6 Chloride Level 105 Carbon Dioxide Level 26.7 Anion Gap 7 Blood Urea Nitrogen 14 Creatinine 0.79 Estimat Glomerular Filtration 103 Rate Random Glucose 89 Calcium Level 9.0 Troponin I LESS THAN 0.02 LESS THAN 0.02 Ethyl Alcohol Level LESS THAN 3 Total Creatine Kinase 351 Creatine Kinase MB 6.4 Creatine Kinase MB % 1.8 Result Diagram: 08/23/1662908/23/16629 Imaging Last 24 hours Impressions Chest X-Ray 08/23/16612 Signed Impressions: Service Date/Time: Tuesday, August 23, 2016 06:10 - CONCLUSION: No acute cardiopulmonary process. Marquis Solomon MD Assessment and Plan Assessment and Plan * Atypical chest pain: Patient will continue to have serial cardiac enzymes and EKGs for ruling out purposes. He has been seen by Dr. Pride of cardiology and the chest pain center and will be discharged home at this time. * Tobacco abuse: Patient has been counseled on importance of smoking cessation. Patient is stable at this time. He is agreeable to this plan. Thaddeus Jones Aug 23, 2016 10:36
--- NOTE | 2016-08-23 10:49 | HHI.PR ---
Subjective Remarks PATIENT SEEN AFTER REVIEW WITH PA. BROUGHT HERE BY POLICE AFTER BEING FOUND IN [facility] ([place]) AND REFUSING TO MOVE. WHEN CONFRONTED HE COMPLAINED OF CHEST PAIN. HE HAS BEEN EVALUATED BY ED AND CP PA AND I AM IN AGREEMENT WITH THEIR EVAL. Objective Vital Signs Date Time Temp Pulse Resp B/P Pulse Ox O2 Delivery O2 Flow Rate FiO2 08/23/16 09:34 96.0 67 16 145/65 98 08/23/16 07:40 70 17 155/72 98 Room Air 08/23/16 06:40 16 100 Room Air 08/23/16 06:40 141/70 138/73 Automatic Cuff 08/23/16 06:07 61 16 96 Room Air 08/23/16 05:48 98.1 74 15 147/72 98 Room Air Result Diagram: 08/23/1630 08/23/16 0630 Objective Remarks GEN PATIENT IS LETHARGIC AND KEEPS DRIFTING OFF TO SLEEP. UNSHAVED UNKEMPT IN "UNDERWEAR" CHEST IS CLEAR TO A/P CV RSR WITHOUT GRM ABD SOFT SKN DARKLY SUN TANNED Assessment and Plan Discharge Planning HAS RULED OUT AND PRESENTATION NOT SUGGESTIVE OF CV ISCHEMIA FURTHER EVALUATION NOT WARRANTED AT THIS TIME DISCHARGE TO FU WITH [facility] Jim Pride MD Aug 23, 2016 10:49
[2016-08-23 12:00] VITALS: BP 135/78; PULSE 57; RESP 16; TEMP 96.2; O2SAT 98
--- NOTE | 2016-08-23 12:24 | EKG ---
Date Performed: 08/23/2016 Time Performed: 09:11:25 PTAGE: 51 years EKG: SINUS BRADYCARDIA MODERATE INTRAVENTRICULAR CONDUCTION DELAY NONSPECIFIC T-WAVE ABNORMALITY BORDERLINE ECG NO SIG CHANGE PREVIOUS TRACING : 08/23/2016 06.08 DOCTOR: Jim Pride Interpretating Date/Time 08/23/2016 12:23:11
--- NOTE | 2016-08-23 12:35 | HHI.DCPOC ---
Discharge Care Plan Diagnosis: (1) Chest pain, atypical (2) Tobacco abuse Goals to Promote Your Health * To prevent worsening of your condition and complications * To maintain your health at the optimal level Directions to Meet Your Goals Take your medications as prescribed Follow your dietary instruction Follow activity as directed Keep your appointments as scheduled Take your immunizations and boosters as scheduled If your symptoms worsen call your PCP, if no PCP go to Urgent Care Center or Emergency Room Smoking is Dangerous to Your Health. Avoid second hand smoke Call the 24-hour hour crisis hotline for domestic abuse at Thaddeus Jones Aug 23, 2016 12:35
[2016-08-23 17:00] VITALS: PULSE 55
[2016-08-23] MEDS ORDERED: SODIUM CHLORIDE 0.9% FLUSH 5 ML FLUSH IVF SCH (21:00)
[2016-08-24] MEDS ORDERED: ASPIRIN 325 MG TAB PO SCH (09:00)
== END 2016-08-23 19:42 | disposition home or self-care (01) ==
LOC: NEPE 05:44 → NEDA 07:41 → NEPGCP 10:01
PROVIDERS: ADMIT Internal Medicine Interventional Cardiology; ATTEND Internal Medicine Interventional Cardiology
DX: R07.89 Other chest pain (principal); R10.11 Right upper quadrant pain; R00.1 Bradycardia, unspecified; R05 Cough; I10 Essential (primary) hypertension; F17.210 Nicotine dependence, cigarettes, uncomplicated; Z86.73 Personal history of transient ischemic attack (TIA), and cerebral infarction without residual deficits
CPT/HCPCS: 71010; 80048; 80307; 82550; 82552; 84484; 85025; 85610; 85730; 93005; 99285; G0378

== ENCOUNTER 2016-09-03 21:48 | Emergency (ER) | payer SELFPAY ==
[2016-09-03 21:49] VITALS: BP 129/61; PULSE 81; RESP 16; TEMP 98.6; O2SAT 99
== END 2016-09-03 22:15 | disposition left against medical advice (07) ==
LOC: NED 21:48
DX: R07.9 Chest pain, unspecified (principal); Z53.21 Procedure and treatment not carried out due to patient leaving prior to being seen by health care provider
CPT/HCPCS: 99281

== ENCOUNTER 2016-09-14 21:17 | Emergency (ER) | payer SELFPAY ==
[~2016-09-14] VITALS: Ht 185.4 cm; Wt 80.0 kg
[2016-09-14 21:23] VITALS: BP 149/75; PULSE 60; RESP 16; TEMP 97.3; O2SAT 97
[2016-09-14] MEDS ORDERED: MECLIZINE HCL 25 MG TAB PO ONE (21:30)
--- NOTE | 2016-09-14 21:36 | PD ---
HPI Chief Complaint: Dizziness Time Seen by Provider: 21:29 Travel History International Travel<30 days: No Contact w/Intl Traveler<30days: No Traveled to known affect area: No History of Present Illness HPI 51-year-old male complains of dizziness, headache, unsteady gait. His and states that the symptoms started about half an hour prior to arrival. Patient states that he has history of intermittent dizziness for the past 2 years. Patient states that he started having severe dizziness today that he was unable to walk straight. Patient states that he has throbbing headache interchange with numbness on the left side the head. Patient denies any visual change. Patient denies any neck pain. Patient denies any chest pain or shortness of breath. Patient denies abdominal pain. Patient denies any focal weakness or numbness of extremity. Patient states that he has history of CVA in the past without any residual sequela. Patient states that he has history hypertension however has not taken any medication recently. Patient denies any history diabetes or hyperlipidemia. Patient is a smoker. Patient states that he was given meclizine for the dizziness in the past however unable to afford the medication. PFSH Past Medical History Heart Rhythm Problems: No Cardiac Catheterization: No Cardiovascular Problems: Yes High Cholesterol: No Congestive Heart Failure: No Cerebrovascular Accident: Yes (x6) Diabetes: No Diminished Hearing: No Hypertension: Yes Seizures: Yes Influenza Vaccination: No Past Surgical History Surgical History: No Previous Surgery Coronary Artery Bypass Graft: No Social History Alcohol Use: Yes (OCC) Tobacco Use: Yes (1 PPD) Substance Use: No Allergies-Medications (Allergen,Severity, Reaction): Coded Allergies: No Known Allergies (Unverified , 08/23/16) Reported Meds & Prescriptions Reported Meds & Active Scripts Active No Active Prescriptions or Reported Medications Review of Systems General / Constitutional: No: Fever Eyes: No: Visual changes HENT: Positive: Lightheadedness, No: Headaches Cardiovascular: No: Chest Pain or Discomfort Respiratory: No: Shortness of Breath Gastrointestinal: No: Abdominal Pain Genitourinary: No: Dysuria Musculoskeletal: No: Pain Skin: No Rash Neurologic: No: Weakness Psychiatric: No: Depression Endocrine: No: Polydipsia Hematologic/Lymphatic: No: Easy Bruising Physical Exam Narrative GENERAL: Well-nourished, well-developed patient. SKIN: Focused skin assessment warm/dry. HEAD: Normocephalic. EYES: No scleral icterus. No injection or drainage. NECK: Supple, trachea midline. No JVD or lymphadenopathy. CARDIOVASCULAR: Regular rate and rhythm without murmurs, gallops, or rubs. RESPIRATORY: Breath sounds equal bilaterally. No accessory muscle use. GASTROINTESTINAL: Abdomen soft, non-tender, nondistended. MUSCULOSKELETAL: No cyanosis, or edema. BACK: Nontender without obvious deformity. No CVA tenderness. Neurologic exam: Patient's awake and alert oriented 3. Patient moves all extremity well. No obvious focal neurological deficit. Data Data Last Documented VS Vital Signs Date Time Temp Pulse Resp B/P Pulse Ox O2 Delivery O2 Flow Rate FiO2 09/14/16 21:23 97.3 60 16 149/75 97 Orders Electrocardiogram (09/14/16 21:29) Complete Blood Count With Diff (09/14/16 21:29) Comprehensive Metabolic Panel (09/14/16 21:29) Prothrombin Time / Inr (Pt) (09/14/16 21:29) Act Partial Throm Time (Ptt) (09/14/16 21:29) Urinalysis - C+S If Indicated (09/14/16 21:29) Thyroid Stimulating Hormone (09/14/16 21:29) Chest, Single Ap (09/14/16 21:29) Ct Brain W/O Iv Contrast(Rout) (09/14/16 21:29) Iv Access Insert/Monitor (09/14/16 21:29) Ecg Monitoring (09/14/16 21:29) Oximetry (09/14/16 21:29) Drug Screen, Random Urine (09/14/16 21:29) Alcohol (Ethanol) (09/14/16 21:29) Meclizine (Antivert) (09/14/16 21:30) Labs Laboratory Tests Test 09/14/16 21:34 White Blood Count 6.2 TH/MM3 Red Blood Count 4.38 MIL/MM3 Hemoglobin 13.7 GM/DL Hematocrit 40.1 % Mean Corpuscular Volume 91.5 FL Mean Corpuscular Hemoglobin 31.4 PG Mean Corpuscular Hemoglobin 34.3 % Concent Red Cell Distribution Width 14.2 % Platelet Count 224 TH/MM3 Mean Platelet Volume 7.6 FL Neutrophils (%) (Auto) 54.4 % Lymphocytes (%) (Auto) 30.4 % Monocytes (%) (Auto) 8.8 % Eosinophils (%) (Auto) 5.1 % Basophils (%) (Auto) 1.3 % Neutrophils # (Auto) 3.3 TH/MM3 Lymphocytes # (Auto) 1.9 TH/MM3 Monocytes # (Auto) 0.5 TH/MM3 Eosinophils # (Auto) 0.3 TH/MM3 Basophils # (Auto) 0.1 TH/MM3 CBC Comment DIFF FINAL Differential Comment Prothrombin Time 10.7 SEC Prothromb Time International 1.0 RATIO Ratio Activated Partial 26.7 SEC Thromboplast Time Sodium Level 137 MEQ/L Potassium Level 3.4 MEQ/L Chloride Level 105 MEQ/L Carbon Dioxide Level 21.8 MEQ/L Anion Gap 10 MEQ/L Blood Urea Nitrogen 20 MG/DL Creatinine 1.00 MG/DL Estimat Glomerular Filtration 78 ML/MIN Rate Random Glucose 156 MG/DL Calcium Level 8.5 MG/DL Total Bilirubin 0.3 MG/DL Aspartate Amino Transf 25 U/L (AST/SGOT) Alanine Aminotransferase 28 U/L (ALT/SGPT) Alkaline Phosphatase 69 U/L Total Protein 6.9 GM/DL Albumin 3.7 GM/DL Thyroid Stimulating Hormone 1.540 uIU/ML 3rd Gen Ethyl Alcohol Level LESS THAN 3 MG/DL MDM Medical Decision Making Medical Screen Exam Complete: Yes Emergency Medical Condition: Yes Interpretation(s) Last Impressions Head CT 09/14/162128 Signed Impressions: Service Date/Time: Wednesday, September 14, 2016 21:55 - CONCLUSION: No acute findings in the brain. 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 Traun Garcia MD Chest X-Ray 09/14/162128 Signed Impressions: Service Date/Time: Wednesday, September 14, 2016 21:34 - CONCLUSION: The lungs are clear. Tarun Garcia MD 22:45 PM. CBC within normal limit. CMP within normal limit. Alcohol less than 3. Differential Diagnosis Differential diagnosis including vertigo, electrolyte imbalance, dehydration, TIA, CVA. Narrative Course 51-year-old male with dizziness, headache. History of recurrent dizziness. Diagnosis Primary Impression: Acute onset of severe vertigo Additional Impression: Cephalgia Qualified Code: R51 - Acute nonintractable headache, unspecified headache type Patient Instructions: General Instructions Additional Instructions: Meclizine as needed for dizziness. Tylenol ibuprofen for headache. Follow-up with personal physician. Return if worse. Med/Other Pt SpecificInfo: Prescription(s) given Scripts Meclizine 25 Mg Tab25 Mg PO TID PRN (VERTIGO) #21 TAB Prov:Claudio Ramirez MD 09/14/16 Disposition: 01 DISCHARGE HOME Condition: Stable Claudio Ramirez MD Sep 14, 2016 21:36
[2016-09-14 21:46] LABS: AUTOMATED NEUTROPHIL # 3.3 TH/MM3 (1.8-7.7); BASOPHIL # 0.1 TH/MM3 (0-0.2); BASOPHIL % 1.3 % (0.0-2.0); EOSINOPHIL # 0.3 TH/MM3 (0-0.4); EOSINOPHIL % 5.1 % (0.0-4.0); HEMATOCRIT 40.1 % (39.0-51.0); HEMO FLAGS DIFF FINAL; LYMPH % 30.4 % (9.0-44.0); LYMPHOCYTE # 1.9 TH/MM3 (1.0-4.8); MEAN CELL VOLUME 91.5 FL (80.0-100.0); MEAN CORPUSCULAR HEMOGLOBIN 31.4 PG (27.0-34.0); MEAN CORPUSCULAR HGB CONC 34.3 % (32.0-36.0); MONO % 8.8 % (0.0-8.0); NEUT % 54.4 % (16.0-70.0); PLATELET COUNT 224 TH/MM3 (150-450); RED BLOOD COUNT 4.38 MIL/MM3 (4.50-5.90); RED CELL DISTRIBUTION WIDTH 14.2 % (11.6-17.2); WHITE BLOOD COUNT 6.2 TH/MM3 (4.0-11.0)
[2016-09-14 21:55] LABS: APTT (PATIENT) 26.7 SEC (24.3-30.1); PROTHROMBIN TIME - PATIENT 10.7 SEC (9.8-11.6)
--- NOTE | 2016-09-14 21:56 | RADRPT ---
EXAM DATE/TIME: 09/14/2016 21:34 [facility] COMPARISON: CHEST SINGLE AP, August 23, 2016, 6:10. INDICATIONS : Shortness of breath. MEDICAL HISTORY : None. SURGICAL HISTORY : None. ENCOUNTER: Initial ACUITY: 1 day PAIN SCORE: 0/10 LOCATION: Bilateral chest FINDINGS: A single view of the chest demonstrates the lungs to be symmetrically aerated without evidence of mas s, infiltrate or effusion. The cardiomediastinal contours are unremarkable. Stable deformities of t he lateral left ribs.. CONCLUSION: The lungs are clear. Tarun Garcia MD on September 14, 2016 at 21:54 Board Certified Radiologist. This report was verified electronically.
[2016-09-14 22:10] LABS: ANION GAP 10 MEQ/L (5-15); AST (GOT) 25 U/L (15-37); BICARBONATE 21.8 MEQ/L (21.0-32.0); BLOOD UREA NITROGEN 20 MG/DL (7-18); CHLORIDE 105 MEQ/L (98-107); GLOMERULAR FILTRATION RATE 78 ML/MIN (>89); POTASSIUM 3.4 MEQ/L (3.5-5.1); SODIUM (NA) 137 MEQ/L (136-145)
--- NOTE | 2016-09-14 22:11 | RADRPT ---
EXAM DATE/TIME: 09/14/2016 21:55 [facility] COMPARISON: CT BRAIN W/O CONTRAST, August 12, 2016, 9:10. INDICATIONS : Dizziness. RADIATION DOSE: 56.35 CTDIvol (mGy) MEDICAL HISTORY : Seizures. Cardiovascular disease Hypertension.CVA. SURGICAL HISTORY : None. ENCOUNTER: Initial ACUITY: 1 day PAIN SCALE: 0/10 LOCATION: cranial TECHNIQUE: Multiple contiguous axial images were obtained of the head. Using automated exposure control and adj ustment of the mA and/or kV according to patient size, radiation dose was kept as low as reasonably a chievable to obtain optimal diagnostic quality images. DICOM format image data is available electro nically for review and comparison. FINDINGS: There is an area of diminished cortical and subcortical density in the medial left occipital region p osterior to the occipital horn of lateral ventricle extending to the posterior medial cortical surfac e. Similar areas of diminished density are present in the cerebellar hemispheres bilaterally. These a re presumably old infarctions and are stable in appearance compared to 08/12/69. An old lacunar infarc t is present in the right caudate head. There is no evidence of intracranial hemorrhage or mass. Vent ricles are symmetric and normal. No evidence of acute hemorrhage or acute infarction. Extracranial structures are benign and intact. CONCLUSION: No acute findings in the brain. 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 Tarun Garcia MD on September 14, 2016 at 22:07 Board Certified Radiologist. This report was verified electronically.
[2016-09-14 22:12] LABS: ALT (GPT) 28 U/L (12-78)
[2016-09-14 22:21] LABS: ALKALINE PHOSPHATASE 69 U/L (45-117); TOTAL BILIRUBIN ADULT 0.3 MG/DL (0.2-1.0)
[2016-09-14] MEDS ORDERED: MECL-62 PO (22:49)
--- NOTE | 2016-09-15 15:25 | EKG ---
Date Performed: 09/14/2016 Time Performed: 21:30:34 PTAGE: 51 years EKG: Sinus rhythm MODERATE INTRAVENTRICULAR CONDUCTION DELAY BORDERLINE ECG PREVIOUS TRACING 08/23/2016 09.11.25 Compared to previous tracing, sinus rate has increased. DOCTOR: Viral Lock Interpretating Date/Time 09/15/2016 15:24:23
== END 2016-09-14 23:44 | disposition home or self-care (01) ==
LOC: NEPC 21:17
DX: R42 Dizziness and giddiness (principal); R51 Headache; R20.0 Anesthesia of skin; I10 Essential (primary) hypertension; F17.200 Nicotine dependence, unspecified, uncomplicated; Z86.73 Personal history of transient ischemic attack (TIA), and cerebral infarction without residual deficits
CPT/HCPCS: 70450; 71010; 80053; 80307; 84443; 85025; 85610; 85730; 93005; 99285

== ENCOUNTER 2016-10-29 08:19 | Emergency (ER) | payer SELFPAY ==
[~2016-10-29] VITALS: Ht 185.4 cm; Wt 85.0 kg
[~2016-10-29 08:19] MED LIST changes: -AUGM875T PO; -HYDR-3133 PO; -IBUP800T23 PO; +MECL-62 PO
[2016-10-29 08:27] VITALS: BP 143/83; PULSE 67; RESP 19; TEMP 97.7; O2SAT 97
--- NOTE | 2016-10-29 08:48 | PD ---
HPI . abdominal pain for a second now gone Chief Complaint: GI Complaint Time Seen by Provider: 08:43 Travel History International Travel<30 days: No Contact w/Intl Traveler<30days: No Traveled to known affect area: No History of Present Illness HPI 51-year-old male here with complaints of sudden onset of abdominal pain. Patient was riding on a bus when he developed a sudden onset of epigastric pain. He says fire rescue was called to bring him to the emergency department his pain completely subsided. He is now here telling me that he has no complaints of pain. He denies any chest pain, nausea, vomiting, shortness of breath, abdominal pain, bowel or bladder changes etc. He says he feels perfectly fine, both like to know what happened to him. He says that on his right here, the ambulance worker told him that he possibly may have some issues related to GERD due to ingestion of spicy foods. He tells me that he eats spicy foods quite frequently. He has some slowed speech and tells me he had strokes in the past that cause him to speak this way. He denies any illegal drug use. He admits to smoking cigars and cigarettes. PFSH Past Medical History Heart Rhythm Problems: No Cardiac Catheterization: No Cardiovascular Problems: Yes High Cholesterol: No Congestive Heart Failure: No Cerebrovascular Accident: Yes (x6) Diabetes: No Diminished Hearing: No Hypertension: Yes Seizures: Yes Past Surgical History Surgical History: No Previous Surgery Coronary Artery Bypass Graft: No Social History Alcohol Use: No Tobacco Use: Yes (1 PPD) Substance Use: No Allergies-Medications (Allergen,Severity, Reaction): Coded Allergies: No Known Allergies (Unverified , 08/23/16) Reported Meds & Prescriptions Reported Meds & Active Scripts Active Zantac (Ranitidine HCl) 150 Mg Tab 150 Mg PO BID 30 Days Meclizine (Meclizine HCl) 25 Mg Tab 25 Mg PO TID PRN Review of Systems General / Constitutional: No: Fever Eyes: No: Visual changes HENT: No: Headaches Cardiovascular: No: Chest Pain or Discomfort, Syncope, Edema Respiratory: No: Cough, Shortness of Breath Gastrointestinal: No: Nausea, Vomiting, Diarrhea, Abdominal Pain Genitourinary: No: Dysuria Musculoskeletal: No: Pain Skin: No Rash Neurologic: No: Weakness Psychiatric: No: Depression Endocrine: No: Polydipsia Hematologic/Lymphatic: No: Easy Bruising Physical Exam Narrative GENERAL: AAO x 3, no acute distress, Well-nourished, well-developed patient. SKIN: Warm and dry. No visible rashes or bruising. HEAD: Normocephalic and atraumatic. EYES: No scleral icterus. No injection or drainage. EOM intact, PERRLA, pink conjunctiva ENT: No nasal drainage noted. Mucous membranes pink. Airway patent. NECK: Supple, trachea midline. No JVD. CARDIOVASCULAR: Regular rate and rhythm without murmurs, gallops, or rubs. RESPIRATORY: Breath sounds equal bilaterally. No accessory muscle use. No rhonchi or rales. GASTROINTESTINAL: Abdomen soft, non-tender, nondistended. No rebound or guarding. No McBurney's point tenderness. No Jin sign. EXTREMITIES: No cyanosis or edema. slightly ataxic gait, but ambulatory (s/p CVA in the past) BACK: Nontender without obvious deformity. No CVA tenderness. NEURO: CN II-12 intact, slight slurred speech (baseline for patient) PSYCH: AAO x 3, Data Data Last Documented VS Vital Signs Date Time Temp Pulse Resp B/P (MAP) Pulse Ox O2 Delivery O2 Flow Rate FiO2 10/29/16 09:14 10/29/16 08:27 97.7 67 19 97 Room Air MDM Medical Decision Making Medical Screen Exam Complete: Yes Emergency Medical Condition: Yes Medical Record Reviewed: Yes Differential Diagnosis GERD, gastritis, anxiety Narrative Course 51 yr old male here with one episode of abdominal pain that is now gone. He has no specific complaints. His exam is unremarkable. His vital signs are within normal limits. He has no complaints. Abdominal examination is unremarkable. I do not suspect an acute abdomen. I advised patient if his symptoms return or worsen, go to the nearest emergency department. I advised him to follow-up with his primary care provider. I recommend he try [id number] H2 receptor radha such as Zantac. Patient verbalized understanding of instructions, questions were answered, and thanked me for their care. I advised them if their condition worsens, please return to the nearest emergency room for further care. Diagnosis Primary Impression: Abdominal discomfort Patient Instructions: General Instructions Additional Instructions: Please return to emergency department if your symptoms return or worsen. Follow up with your primary care provider. Take medications as prescribed. Med/Other Pt SpecificInfo: Prescription(s) given Scripts Ranitidine (Zantac) 150 Mg Tab 150 MG PO BID for Reduce Stomach Acid for 30 Days, #60 TAB 0 Refills Prov: Goran Vigil MD 10/29/16 Disposition: 01 DISCHARGE HOME Condition: Stable Millie Oliva Oct 29, 2016 08:48
[2016-10-29] MEDS ORDERED: ZANT150T2 PO (08:56)
== END 2016-10-29 09:13 | disposition home or self-care (01) ==
LOC: NEPD 08:19
DX: R10.13 Epigastric pain (principal)
CPT/HCPCS: 99283

== ENCOUNTER 2017-02-27 11:52 | Emergency (ER) | payer SELFPAY ==
[~2017-02-27] VITALS: Ht 185.4 cm; Wt 90.9 kg
[~2017-02-27 11:52] MED LIST changes: +ZANT150T2 PO
[2017-02-27 11:56] VITALS: BP 160/76; PULSE 83; RESP 16; TEMP 98.1; O2SAT 99
--- NOTE | 2017-02-27 21:33 | PD ---
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 He has no other complaints at this time. Data Data Last Documented VS Vital Signs Date Time Temp Pulse Resp B/P (MAP) Pulse Ox O2 Delivery O2 Flow Rate FiO2 02/27/17 15:20 02/27/17 11:56 98.1 83 16 99 MDM Supervised Visit with LAUREN: No Narrative Course 51 year old male presents to the emergency department requesting a letter to get a discounted mace for the bus. He was initially seen in triage. He left AMA before being placed in a medical bed. Diagnosis Primary Impression: Left against medical advice Disposition: 07 AGAINST MEDICAL ADVICE Tessy Palmer Feb 27, 2017 21:33
== END 2017-02-27 16:01 | disposition left against medical advice (07) ==
LOC: NED 11:52
DX: Z02.89 Encounter for other administrative examinations (principal)
CPT/HCPCS: 99281

== ENCOUNTER 2017-03-13 01:32 | Emergency (ER) | payer OTHER ==
[~2017-03-13] VITALS: Ht 177.8 cm; Wt 80.0 kg
[2017-03-13 01:41] VITALS: BP 155/114; PULSE 67; RESP 16; TEMP 98.6; O2SAT 96
[2017-03-13 02:00] VITALS: BP 161/84; PULSE 76; RESP 12; O2SAT 96
[2017-03-13] MEDS ORDERED: diphenhydrAMINE HCL 50 MG/ML VIAL IV PUSH ONE (02:00)
[2017-03-13] MEDS ORDERED: LORazepam 2 MG/ML VIAL IV PUSH ONE (02:00)
[2017-03-13] MEDS ORDERED: METOCLOPRAMIDE INJ 10 MG in SODIUM CHLORIDE 0.9% INJ 50 ML IV ONE (02:00)
[2017-03-13] MEDS ORDERED: KETOROLAC TROMETHAMINE 30 MG/ML (IVP) VIAL IV PUSH ONE (02:00)
[2017-03-13 03:00] VITALS: BP 127/67; PULSE 68; RESP 12; O2SAT 96
--- NOTE | 2017-03-13 03:57 | PD ---
HPI Chief Complaint: Facial Pain or Swelling Time Seen by Provider: 01:47 Travel History International Travel<30 days: No Contact w/Intl Traveler<30days: No Traveled to known affect area: No History of Present Illness HPI Patient called paramedics he was at a gas station complaining of severe facial pain left-sided underneath his maxillary infraorbital area. He seems somewhat possibly intoxicated he is screaming holding his face. pt is a poor historian not giving a good history and becomes quickly agitated but then cooperative re- directable. He is been in the ER with complaint in the past there is no focal deficit no sign of this being an ischemic stroke with central causes for his pain ..possibly he has trigeminal neuralgia he'll be treated for neuropathic pain of the face. nothing taken tyo alleviate pain, no other md seen [facility] Past Medical History Heart Rhythm Problems: No Cardiac Catheterization: No Cardiovascular Problems: Yes High Cholesterol: No Congestive Heart Failure: No Cerebrovascular Accident: Yes (x6) Diabetes: No Diminished Hearing: No Hypertension: Yes Seizures: Yes Past Surgical History Coronary Artery Bypass Graft: No Social History Alcohol Use: No Tobacco Use: Yes (1 PPD) Substance Use: No Allergies-Medications (Allergen,Severity, Reaction): Coded Allergies: No Known Allergies (Unverified Adverse Reaction, Unknown, 03/15/17) Reported Meds & Prescriptions Reported Meds & Active Scripts Active Gabapentin 100 Mg Cap 100 Mg PO TID Review of Systems Except as stated in HPI: all other systems reviewed are Neg Physical Exam Narrative GENERAL: Agitated holding his face crying screaming then lies quietly redirectable but seems intoxicated SKIN: Warm and dry. HEAD: Atraumatic. Normocephalic. EYES: Pupils equal and round. No scleral icterus. No injection or drainage. ENT: No nasal bleeding or discharge. Mucous membranes pink and moist. Left face severely sensitive no vesicles seen neck shocked a motor intact no sign of a vesicle or zoster NECK: Trachea midline. No JVD. CARDIOVASCULAR: Regular rate and rhythm. RESPIRATORY: No accessory muscle use. Clear to auscultation. Breath sounds equal bilaterally. GASTROINTESTINAL: Abdomen soft, non-tender, nondistended. Hepatic and splenic margins not palpable. MUSCULOSKELETAL: Extremities without clubbing, cyanosis, or edema. No obvious deformities. NEUROLOGICAL: Awake and alert. No obvious cranial nerve deficits. Motor grossly within normal limits. Five out of 5 muscle strength in the arms and legs. Normal speech. PSYCHIATRIC: Appropriate mood and affect; insight and judgment normal. Data Data Last Documented VS Vital Signs Date Time Temp Pulse Resp B/P (MAP) Pulse Ox O2 Delivery O2 Flow Rate FiO2 03/13/17 06:15 03/13/17 05:00 58 12 98 Room Air 03/13/17 01:41 98.6 Orders Orders Lorazepam Inj (Ativan Inj) (03/13/17 02:00) Ketorolac Inj (Toradol Inj) (03/13/17 02:00) Diphenhydramine Inj (Benadryl Inj) (03/13/17 02:00) Metoclopramide Inj (Reglan Inj) (03/13/17 02:00) Tramadol (Ultram) (03/13/17 06:00) Gabapentin (Neurontin) (03/13/17 06:00) Electrocardiogram (03/13/17 01:43) MDM Medical Decision Making Medical Screen Exam Complete: Yes Emergency Medical Condition: Yes Differential Diagnosis trigeminal neuralgia vs trauma vs periorbital cellulitis , vs psychogenic pain . other vs zoster Narrative Course no vesicles no erythema no signs of trauma and EOMI and pt falls asleep with IV benadryl, Ativan , regaln and troadol , awakes much improved . no need for further EMergency eval or admission CT not indicated at this time , 1 dose tramadol and Gabapentin given in the ER and Rx fro Neurontin d/c follow up outpt Diagnosis Primary Impression: Facial pain Patient Instructions: Atypical Facial Pain (ED), General Instructions Scripts Gabapentin (Gabapentin) 100 Mg Cap 100 MG PO TID, #20 CAP 0 Refills Prov: Acosta Hwang MD 03/13/17 Disposition: 01 DISCHARGE HOME Condition: Good Acosta Hwang MD Mar 13, 2017 03:57
[2017-03-13 04:00] VITALS: BP 127/81; PULSE 62; RESP 12; O2SAT 97
[2017-03-13 05:00] VITALS: BP 127/71; PULSE 58; RESP 12; O2SAT 98
[2017-03-13] MEDS ORDERED: GABAPENTIN 100 MG CAP PO ONE (06:00)
[2017-03-13] MEDS ORDERED: traMADol HCL 50 MG TAB PO ONE (06:00)
[2017-03-13] MEDS ORDERED: GABA100C4 PO (06:07)
--- NOTE | 2017-03-13 08:33 | EKG ---
Date Performed: 03/13/2017 Time Performed: 01:43:51 PTAGE: 51 years EKG: Sinus rhythm WITH SINUS ARRHYTHMIA NONSPECIFIC T-WAVE ABNORMALITY BORDERLINE ECG NO PREVIOUS TRACING DOCTOR: Vinicio Mitchell Interpretating Date/Time 03/13/2017 08:33:01
== END 2017-03-13 06:00 | disposition home or self-care (01) ==
LOC: NEPC 01:32
DX: R51 Headache (principal); I10 Essential (primary) hypertension; R56.9 Unspecified convulsions; F17.200 Nicotine dependence, unspecified, uncomplicated; I49.9 Cardiac arrhythmia, unspecified; R94.31 Abnormal electrocardiogram [ECG] [EKG]; Z86.73 Personal history of transient ischemic attack (TIA), and cerebral infarction without residual deficits
CPT/HCPCS: 93005; 96365; 96375; 99284; J1200; J1885; J2060; J2765

== ENCOUNTER 2017-03-14 23:38 | Emergency (ER) | payer OTHER ==
[~2017-03-14 23:38] MED LIST changes: +GABA100C4 PO; -MECL-62 PO; -ZANT150T2 PO
[2017-03-15 00:05] VITALS: BP 177/85; PULSE 88; RESP 16; TEMP 97.9; O2SAT 99
[2017-03-15] MEDS ORDERED: GABAPENTIN 300 MG CAP PO ONE (00:15)
--- NOTE | 2017-03-15 00:15 | PD ---
HPI Chief Complaint: Headache Time Seen by Provider: 00:09 Travel History International Travel<30 days: No Contact w/Intl Traveler<30days: No Traveled to known affect area: No History of Present Illness HPI 51-year-old male patient with history of CVA, hypertension, atypical headaches seen a few days ago, given gabapentin, presents to the ER today because of intermittent sharp 8 out of 10 left facial pains that is occurring intermittently and lasts only a few seconds at a time. He states that that is the reason he was seen for last time but he was not able to get his gabapentin filled because it costs money and he doesn't have any currently. He denies any new symptoms, difficulty walking, difficulty talking, vomiting, fevers, or any other symptoms. Modifying Factors: None Associated Signs & Symptoms: Left facial pain that is intermittent in nature Risk Factors: Seen several days ago for similar symptoms PFSH Past Medical History Heart Rhythm Problems: No Cardiac Catheterization: No Cardiovascular Problems: Yes High Cholesterol: No Congestive Heart Failure: No Cerebrovascular Accident: Yes (x6) Diabetes: No Diminished Hearing: No Hypertension: Yes Seizures: Yes Past Surgical History Coronary Artery Bypass Graft: No Social History Alcohol Use: No Tobacco Use: Yes (1 PPD) Substance Use: No Allergies-Medications (Allergen,Severity, Reaction): Coded Allergies: No Known Allergies (Unverified Adverse Reaction, Unknown, 03/15/17) Reported Meds & Prescriptions Reported Meds & Active Scripts Active Gabapentin 100 Mg Cap 100 Mg PO TID Review of Systems Except as stated in HPI: all other systems reviewed are Neg Physical Exam Narrative GENERAL: Well-developed middle age white male patient currently in mild distress. Awake and oriented 3. SKIN: Focused skin assessment warm/dry. HEAD: Atraumatic. Normocephalic. EYES: Pupils equal and round. No scleral icterus. No injection or drainage. ENT: No nasal bleeding or discharge. Mucous membranes pink and moist. NECK: Trachea midline. No JVD. Supple. CARDIOVASCULAR: Regular rate and rhythm. No murmur appreciated. RESPIRATORY: No accessory muscle use. Clear to auscultation. Breath sounds equal bilaterally. GASTROINTESTINAL: Abdomen soft, non-tender, nondistended. Hepatic and splenic margins not palpable. MUSCULOSKELETAL: No obvious deformities. No clubbing. No cyanosis. No edema. NEUROLOGICAL: Awake and alert. No obvious cranial nerve deficits. Motor grossly within normal limits. Normal speech. PSYCHIATRIC: Appropriate mood and affect; insight and judgment normal. Data Data Last Documented VS Vital Signs Date Time Temp Pulse Resp B/P (MAP) Pulse Ox O2 Delivery O2 Flow Rate FiO2 03/15/17 00:07 98 Room Air 03/15/17 00:05 97.9 88 16 177/85 (115) Orders Orders Gabapentin (Neurontin) (03/15/17 00:15) MDM Medical Decision Making Medical Screen Exam Complete: Yes Emergency Medical Condition: Yes Medical Record Reviewed: Yes Differential Diagnosis Atypical headache versus trigeminal neuralgia Narrative Course Symptoms are systems are consistent with a trigeminal neuralgia. He apparently has been evaluated for this same issue previously as well and had been given gabapentin which she has not been able to get filled. He was given gabapentin today. At this point, considering there are no new symptoms, my plan would be to release him and have him get his prescription filled. He states he will be able to do that tomorrow when a friend should feel to help him out. Return for new issues as needed. The plan has been discussed with him and he states understanding. Diagnosis Primary Impression: Trigeminal neuralgia of left side of face Disposition: DISCHARGE HOME Condition: Stable Ananda Lujan MD Mar 15, 2017 00:15
== END 2017-03-15 00:51 | disposition home or self-care (01) ==
LOC: NEPC 23:38
DX: G50.0 Trigeminal neuralgia (principal); F17.200 Nicotine dependence, unspecified, uncomplicated
CPT/HCPCS: 99283

== ENCOUNTER 2017-08-09 06:38 | Emergency (ER) | payer SELFPAY ==
[~2017-08-09] VITALS: Ht 185.4 cm; Wt 95.0 kg
[2017-08-09 06:40] VITALS: BP 149/87; PULSE 57; RESP 18; TEMP 97.6; O2SAT 97
[2017-08-09] MEDS ORDERED: KETOROLAC TROMETHAMINE 60 MG/2 ML (IM) VIAL IM ONE (07:30)
[2017-08-09] MEDS ORDERED: ACETAMINOPHEN/HYDROcodone 325 MG/5 MG TAB PO ONE (07:30)
--- NOTE | 2017-08-09 07:47 | PD ---
HPI Chief Complaint: Pain: Acute or Chronic Time Seen by Provider: 07:12 Travel History International Travel<30 days: No Contact w/Intl Traveler<30days: No Traveled to known affect area: No History of Present Illness HPI 51-year-old homeless male presents emergency department with complaints of severe right hip pain. Patient denies injury. He states it came on gradually since yesterday. He denies any other injury or complaint. Patient denies drinking alcohol, however he appears intoxicated. PFSH Past Medical History Heart Rhythm Problems: No Cardiac Catheterization: No Cardiovascular Problems: Yes High Cholesterol: No Congestive Heart Failure: No Cerebrovascular Accident: Yes (x6) Diabetes: No Diminished Hearing: No Heparin Induced Thrombocytopen: No Hypertension: Yes Seizures: Yes Past Surgical History Coronary Artery Bypass Graft: No Social History Alcohol Use: No Tobacco Use: Yes (1 PPD) Substance Use: No Allergies-Medications (Allergen,Severity, Reaction): Coded Allergies: No Known Allergies (Unverified Adverse Reaction, Unknown, 08/09/17) Reported Meds & Prescriptions Reported Meds & Active Scripts Active Gabapentin 100 Mg Cap 100 Mg PO TID Review of Systems Except as stated in HPI: all other systems reviewed are Neg General / Constitutional: No: Fever Eyes: No: Visual changes HENT: No: Headaches Cardiovascular: No: Chest Pain or Discomfort Respiratory: No: Shortness of Breath Gastrointestinal: No: Abdominal Pain Genitourinary: No: Dysuria Musculoskeletal: Positive: Arthralgias, Pain Skin: No Rash Neurologic: No: Weakness Psychiatric: No: Depression Endocrine: No: Polydipsia Hematologic/Lymphatic: No: Easy Bruising Physical Exam Narrative GENERAL: Patient appears intoxicated. He is in no obvious distress. SKIN: Warm and dry. Normal color. Normal turgor. No signs of infection or injury. HEAD: Atraumatic. Normocephalic. EYES: Pupils equal and round. No scleral icterus. No injection or drainage. ENT: No nasal bleeding or discharge. Mucous membranes pink and moist. Pharynx is clear NECK: Trachea midline. Supple. CARDIOVASCULAR: Regular rate and rhythm. RESPIRATORY: No accessory muscle use. Clear to auscultation. Breath sounds equal bilaterally. MUSCULOSKELETAL: Extremities without clubbing, cyanosis, or edema. No obvious deformities. Patient complains of pain with palpation along the right lower back and hip. Range of motion is otherwise unremarkable. NEUROLOGICAL: Awake and alert. No obvious cranial nerve deficits. Motor grossly within normal limits. Five out of 5 muscle strength in the arms and legs. Normal speech. PSYCHIATRIC: Appropriate mood and affect; insight and judgment normal. Data Data Last Documented VS Vital Signs Date Time Temp Pulse Resp B/P (MAP) Pulse Ox O2 Delivery O2 Flow Rate FiO2 08/09/17 06:40 97.6 57 18 149/87 (107) 97 Orders Orders Ketorolac Inj (Toradol Inj) (08/09/17 07:30) Acetamin-Hydrocod 325-5 Mg ([place] 5-325 (08/09/17 07:30) Diet Regular Basic (08/09/17 Breakfast) Hip, Uni(Ap&Lat) W Ap Pelvis (08/09/17 08:21) Iv Access Insert/Monitor (08/09/17 08:21) Oximetry (08/09/17 08:21) Ecg Monitoring (08/09/17 08:21) Sodium Chloride 0.9% Flush (Ns Flush) (08/09/17 08:30) MDM Medical Decision Making Medical Screen Exam Complete: Yes Emergency Medical Condition: Yes Differential Diagnosis Right hip pain. Bursitis. Malingering Narrative Course Patient is given Toradol 60 mg IM. Patient is given Lortab 5/325 1 p.o. Right hip x-rays ordered. Diagnosis Primary Impression: Pain of right hip joint Patient Instructions: General Instructions, Osteoarthritis (ED) Med/Other Pt SpecificInfo: Prescription(s) given Disposition: 01 DISCHARGE HOME Condition: Stable Ryan Mahoney Aug 09, 2017 07:47
[2017-08-09] MEDS ORDERED: SODIUM CHLORIDE 0.9% FLUSH 10 ML FLUSH IVF PRN (08:30)
--- NOTE | 2017-08-09 09:09 | RADRPT ---
EXAM DATE: 08/09/2017 9:04 AM EDT AGE/SEX: 51 years / Male INDICATIONS: Right posterior hip pain. No known injury. CLINICAL DATA: This is the patient's initial encounter. Patient reports that signs and symptoms have been present for 1 day and indicates a pain score of Nonresponsive. MEDICAL/SURGICAL HISTORY: . Seizures. Cardiovascular disease Hypertension.CVA. Non-responsive. COMPARISON: No prior exams available for comparison. FINDINGS: Views of the right hip are obtained. Mild degenerative changes. Femoral neck is intact. No fracture s een. Soft tissues are unremarkable. Bone mineralization normal. CONCLUSION: Degenerative changes without fracture. Electronically signed by: Luis Marcano MD 08/09/2017 9:08 AM EDT
[2017-08-09] MEDS ORDERED: IBUP-232 PO (09:11)
[2017-08-09 09:32] VITALS: RESP 16
== END 2017-08-09 09:33 | disposition home or self-care (01) ==
LOC: NEPD 06:38
DX: M25.551 Pain in right hip (principal); I10 Essential (primary) hypertension; G40.909 Epilepsy, unspecified, not intractable, without status epilepticus; F17.200 Nicotine dependence, unspecified, uncomplicated; Z86.79 Personal history of other diseases of the circulatory system
CPT/HCPCS: 73502; 96372; 99283; J1885